=== PATIENT | male | born 1985 | race Caucasian/White ===

== ENCOUNTER 2020-04-19 08:00 | Outpatient (CLI) | payer OTHER ==
[2020-04-19 11:53] LABS: BASOPHILS % (AUTO) 0.4 %; EOSINOPHILS % (AUTO) 0.1 %; HCT - HEMATOCRIT 47.5 % (42.0-52.0); HGB - HEMOGLOBIN 16.4 g/dL (14.0-18.0); LYMPHOCYTES # (AUTO) 0.6 10^3/uL (1.5-3.5); LYMPHOCYTES % (AUTO) 8.7 %; MEAN CORPUSCULAR HEMOGLOBIN 30.1 pg (27.0-31.0); MEAN CORPUSCULAR HGB CONC 34.5 g/dL (32.0-36.0); MEAN CORPUSCULAR VOLUME 87.2 fL (80.0-94.0); MONOCYTES # (AUTO) 0.3 10^3/uL (0.0-1.0); MONOCYTES % (AUTO) 4.3 %; NEUTROPHILS # (AUTO) 6.3 10^3/uL (1.5-6.6); NEUTROPHILS % (AUTO) 86.2 %; PLT - PLATELET COUNT 186 10^3/uL (130-450); RED BLOOD COUNT 5.45 10^6/uL (4.70-6.10); RED CELL DISTRIBUTION WIDTH 11.9 % (12.0-15.0); WHITE BLOOD COUNT 7.3 x10^3/uL (4.8-10.8)
[2020-04-19 11:54] LABS: BILIRUBIN,URINE NEGATIVE (NEGATIVE); GLUCOSE, URINE (UA) NEGATIVE (NEGATIVE); KETONES,URINE (UA) NEGATIVE (NEGATIVE); LEUKOCYTE ESTERASE, URINE NEGATIVE (NEGATIVE); NITRITE,URINE NEGATIVE (NEGATIVE); OCCULT BLOOD,URINE NEGATIVE (NEGATIVE); PROTEIN,URINE NEGATIVE (NEGATIVE); UROBILINOGEN,URINE 0.2 (NORMAL) E.U./dL (NORMAL)
[2020-04-19 12:05] LABS: ALBUMIN 4.5 g/dL (3.2-5.5); ALBUMIN/GLOBULIN RATIO 1.2 (1.0-2.2); BILIRUBIN,TOTAL 0.7 mg/dL (0.2-1.0); CALCIUM 9.6 mg/dL (8.5-10.3); POTASSIUM 3.9 mmol/L (3.5-5.0); TOTAL PROTEIN 8.2 g/dL (6.7-8.2)
[2020-04-19 12:15] LABS: BACTERIA,URINE Many /HPF (None Seen); CLARITY,URINE CLOUDY (CLEAR); RBC,URINE None Seen /HPF (0-5); SQUAMOUS EPITHELIAL CELL,UR NONE SEEN (<= Few); WBC,URINE 0-3 /HPF (0-3)
== END 2020-04-19 23:59 | disposition home or self-care (01) ==
LOC: LAB.N 08:00
PROVIDERS: ATTEND Nurse Practitioner
DX: R10.9 Unspecified abdominal pain (principal)
CPT/HCPCS: 36415; 80053; 81001; 82150; 83690; 85025; 87086

== ENCOUNTER 2020-05-29 09:53 | Outpatient (CLI) | payer OTHER ==
[2020-05-30 13:16] LABS: HEPATITIS C ANTIBODY REACTIVE (NON-REACTIVE)
== END 2020-05-29 09:54 | disposition home or self-care (01) ==
LOC: LAB.N 09:53
PROVIDERS: ATTEND Registered Nurse
DX: R10.9 Unspecified abdominal pain (principal)
CPT/HCPCS: 36415; 86803

== ENCOUNTER 2020-05-30 07:23 | Outpatient (CLI) | payer OTHER ==
--- NOTE | 2020-05-30 08:47 | Ultrasound Report ---
PROCEDURE: Abdomen Limited INDICATIONS: UNSPECIFIED ABDOMAN PAIN TECHNIQUE: Real-time focused scanning was performed of the abdomen, with image documentation. COMPARISON: None FINDINGS: The liver measures 12.3 cm in length. The liver is echogenic. There is a 1.7 x 1.5 x 1.3 c m well-circumscribed echogenic focus in the right lobe consistent with a hemangioma. The gallbladder has a 4 mm polyp. No stones or gallbladder wall thickening. No intrahepatic biliary ductal dilatation . The pancreatic head is visualized and has a normal appearance. The right kidney has a normal size a nd appearance with no hydronephrosis. IMPRESSION: 1. No acute ultrasound abnormality. 2. Hemangioma in the right lobe of the liver. 3. Benign gallbladder polyp. Reviewed by: Vishal Armstrong on 05/30/2020 8:45 AM PDT Approved by: Vishal Armstrong on 05/30/2020 8:45 AM PDT Station ID: [id number]
== END 2020-05-30 07:24 | disposition home or self-care (01) ==
LOC: DI 07:23
PROVIDERS: ATTEND Registered Nurse
DX: D18.09 Hemangioma of other sites (principal); K82.4 Cholesterolosis of gallbladder; R10.9 Unspecified abdominal pain